=== PATIENT | female | born 1960 | race Caucasian/White ===

== ENCOUNTER 2017-10-06 08:31 | Day surgery (SDC) | payer OTHER ==
[2017-10-03 16:15] VITALS: BMI 27.4
[2017-10-06 08:59] VITALS: TEMP 97.9
[2017-10-06] MEDS ORDERED: PROPOFOL 20 ML ONE ×2 (09:33)
--- NOTE | 2017-10-06 09:57 | PROC ---
Endoscopy Procedure Endoscopy procedure completed. Please see scanned procedure report.
[2017-10-06 13:52] VITALS: BP 112/58; PULSE 70
== END 2017-10-06 11:00 | disposition home or self-care (01) ==
LOC: JASU-ENDO 08:31
PROVIDERS: ATTEND Internal Medicine Gastroenterology
PROC: 0DJD8ZZ Inspection of Lower Intestinal Tract, Via Natural or Artificial Opening Endoscopic (ICD-10-PCS; principal; 2017-10-06 09:30)
DX: Z12.11 Encounter for screening for malignant neoplasm of colon (principal)

== ENCOUNTER → 2019-02-07 | Emergency (ER) | payer OTHER ==
--- NOTE | 2019-02-07 17:27 | PDOC ---
History of Present Illness - General Chief Complaint: Pain, Acute Stated Complaint: LEFT LEG PAIN Time Seen by Provider: 02/07/19 17:27 - History of Present Illness Initial Comments: 02/07/19 18:26 58yo F hx HLD and herniated disc presents from home c/o L foot pain and rash. Pt first noticed posterior calf pain 11 days ago and presented to the ED here 9 days ago. Duplex was done to r/o DVT then pt was referred to ortho for probably strain. Pt saw Orthopedics 6 days ago and was diagnosed with Sciatica and given steroids. Posterior calf pain resolved with steroids. Then 2 days ago pt had gradual onset of L foot and lateral leg pain and a rash. Pt tried Tylenol without improvement. Rash is swelling, redness, and some dumps on lateral calf, medial L heel, ball of foot, and lateral L heel. Pain is located over rash sites , burning type, worse with palpation and walking, worsening with time. Pt has no hx of similar sx. Pt does not know if she has had chickenpox or if she's UTD on her vaccinations. She moved here from [facility] when she was 17yo. Denies F/C, N /V, headache, malaise, fatigue, numbness, weakness, CP, SOB, abdominal pain, flank pain, dysuria, D/C, hematuria, blood in stool, back pain, neck pain. Denies outdoor activity, insect bites, injury, trauma, other rashes. Past History - Past Medical History Allergies/Adverse Reactions: Allergies Allergy/AdvReac Type Severity Reaction Status Date / Time No Known Allergies Allergy Verified 02/07/19 17:24 Home Medications: Ambulatory Orders Aspirin [Aspirin EC] 81 mg PO HS 10/03/17 Simvastatin 40 mg PO HS 01/29/19 Gabapentin [Neurontin] 300 mg PO TID 7 Days #21 capsule 02/07/19 Valacyclovir HCl [Valtrex] 500 mg PO BID 7 Days #14 tablet 02/07/19 Anemia: No Asthma: No Cancer: No Cardiac Disorders: No CVA: No COPD: Yes CHF: No Dementia: No Diabetes: No GI Disorders: No Disorders: No HTN: No Hypercholesterolemia: Yes Liver Disease: No Seizures: No Thyroid Disease: No - Surgical History Abdominal Surgery: No Appendectomy: No Cardiac Surgery: No Cholecystectomy: No Lung Surgery: No Neurologic Surgery: No Orthopedic Surgery: No - Immunization History Immunization Up to Date: Yes - Suicide/Smoking/Psychosocial Hx Smoking History: Current every day smoker Have you smoked in the past 12 months: Yes Number of Cigarettes Smoked Daily: 10 'Breaking Loose' booklet given: 01/29/19 Hx Alcohol Use: No Drug/Substance Use Hx: No Substance Use Type: None Hx Substance Use Treatment: No Review of Systems - Review of Systems Comments:: 02/07/19 18:48 Constitutional: Negative for chills, fever, fatigue. HENT: Negative for sore throat, rhinorrhea, congestion. Eyes: Negative for visual disturbance. Respiratory: Negative for shortness of breath, cough, and wheezing. Cardiovascular: Negative for chest pain, palpitations, and leg swelling. Gastrointestinal: Negative for abdominal pain, blood in stool, constipation, diarrhea, nausea, and vomiting. Genitourinary: Negative for dysuria, flank pain, and hematuria. Musculoskeletal: Positive for pain to L foot at rash locations. Negative for myalgias, back pain, and neck pain. Skin: Positive for rash to lateral L calf/heel, medial L heel, and ball of L foot just proximal to base of 3rd toe. Neurological: Negative for light-headedness, dizziness, syncope, weakness, numbness and headaches. Psychiatric/Behavioral: Negative for behavioral problems and confusion. *Physical Exam - Physical Exam Comments: 02/07/19 18:49 Gen: Alert, NAD, comfortable-appearing. HEENT: PERRL, EOMI, MMM, NCAT. No conjunctival pallor. Sclera are non-icteric. Oropharynx is clear. CV: Regular rate and rhythm. No murmurs, rubs, or gallops. PULM: No resp distress. CTAB, no wheezes, rales, or rhonchi. ABD: soft, NT/ND, no rebound tenderness or guarding, no CVA tenderness. BACK: No TTP of c/t/l-spine. No step-offs or deformities. MSK: No bony deformities. 2+ pulses in all extremities. NEURO: AAOx3. PERRL. No gross CN deficits. Strength and sensation grossly intact throughout. EXTREMITIES: No cyanosis. No clubbing. No edema. No calf tenderness. PSYCH: Normal mood and thought pattern. SKIN: Warm and dry. Normal capillary refill. No jaundice. +Erythematous papules and vesicles and TTP on lateral L calf and heel, medial L heel, and ball of L foot just proximal to base of 3rd toe. No warmth, purulence , fluctuance, exudate, or crepitus. Medical Decision Making - Medical Decision Making 02/07/19 18:33 58yo F hx HLD and herniated disc presents from home with erythematous papular and vesicular rash and pain on lateral L calf/heel, medial L heel, and ball of foot just proximal to base of 3rd toe x 2 days. Of note, pt c/o posterior calf pain from 11 days ago to a few days ago, improved by steroids given by orthopedics for a dx of sciatic 6 days ago. Unknown chickenpox/vaccines. Denies outdoor activity, insect bites, injury, trauma, other rashes, other complaints. Hemodynamically stable, afebrile. No s/s concerning for systemic disease. Unilateral dermatomal pattern (L4-S1) of erythematous papules and grouped vesicles along with prodromal pain make shingles most likely. Will d/c home w/ PCP f/u, Gabapentin for pain, and Valtrex. No face/eye involvement concerning for HZO, acute retinal necrosis, or Erwin Dhillon syndrome. No wounds, warmth, or purulence concerning for bacterial infection, cellulitis, or abscess. No hx of insect bites and presentation not consistent with scabies, tick diseases, or other insect bites. Discussed complications and epidemiology/transmission of shingles. Of note, pt visited a relative in the hospital, a 3yo with Leukemia, 2 days ago. Informed pt to inform leukemia pt's parents and doctor of her dx. Pt's here states he had chickenpox in the past. Return precautions given. Pt understands all dc instructions and all questions were answered. *DC/Admit/Observation/Transfer Diagnosis at time of Disposition: Shingles - Discharge Dispostion Disposition: HOME Condition at time of disposition: Stable Decision to Admit order: No - Prescriptions Prescriptions: Gabapentin [Neurontin] 300 mg PO TID 7 Days #21 capsule Valacyclovir HCl [Valtrex] 500 mg PO BID 7 Days #14 tablet - Referrals Referrals: Mason Hernandez MD [Primary Care Provider] - - Patient Instructions Printed Discharge Instructions: DI for Shingles Additional Instructions: You have been seen in the Emergency Department for your leg and foot rash and pain. Your symptoms appear to be Shingles, a painful viral infection of the nerves and skin. For pain, we have prescribed you Gabapentin - take it 3 times a day as needed for pain. We have also prescribed you Valacyclovir, an antiviral medication to help speed up recovery. Take it as directed on the bottle. Shingles is very contagious to vulnerable people if they come in contact with the rash. Keep your rash covered with pants and socks and stay away from people who have not had chickenpox or the vaccine, women, babies, and people with weakened immune systems. Follow-up with both your primary care doctor and your orthopedic surgeon this week. Return to the ED immediately if you experience a rash on your face or head, worsening pain, fever or chills, nausea or vomiting, dizziness, or any other new or worsening symptom. - Post Discharge Activity
[2019-02-07 17:34] VITALS: BP 128/76; PULSE 77; TEMP 97.6; BMI 26.6
--- NOTE | 2019-02-07 17:58 | PDOC ---
Attending Attestation - Resident Resident Name: Cindy Ayon - ED Attending Attestation I have performed the following: I have examined & evaluated the patient, The case was reviewed & discussed with the resident, I agree w/resident's findings & plan - HPI HPI: 02/07/19 17:54 58 y/o female seen last week in ER for calf pain and had an US which was negative for DVT. Seen by Orthopedics for sciatica and placed on Prednisone. Pain is better, but now with rash on left leg adn some blisters towards bottom of oot. No fever or chills. No fall or trauma. - Physicial Exam PE: 02/07/19 17:55 VS stable HEENT; unremarkable Heart RRR w/o murmur Lungs CTA b/l, no wheezes EXT: left leg with clusters of erythematous lesions and blisters Neuro: strength 5+/5 b/l in UE and LE, no focal deficits noted - Medical Decision Making 02/07/19 17:57 It appears patient has shingles left leg, will place on Neurontin and Valtrex If worsen return to ER Pt is in agreement with plan Dx: Shingles Case discussed with Dr. Ayon and agree with plan
== END | disposition home or self-care (01) ==
LOC: FER 17:23
DX: B02.9 Zoster without complications (principal); E78.5 Hyperlipidemia, unspecified; F17.210 Nicotine dependence, cigarettes, uncomplicated; J44.9 Chronic obstructive pulmonary disease, unspecified
CPT/HCPCS: 99282-25

== ENCOUNTER 2020-09-13 18:13 | Emergency (ER) | payer OTHER | END 2020-09-13 18:56 | disposition home or self-care (01) | LOC: JVIRT 18:13 | DX: Z11.52 Encounter for screening for COVID-19 (principal) | CPT/HCPCS: C9803; G2251-GT; U0003 ==

== ENCOUNTER 2020-09-18 12:49 | Emergency (ER) | payer OTHER ==
[2020-09-18 13:00] VITALS: BP 134/66; PULSE 87; TEMP 98.5; BMI 27.4
== END 2020-09-18 14:30 | disposition home or self-care (01) ==
LOC: FER 12:49
DX: U07.1 COVID-19 (principal); R05 Cough
CPT/HCPCS: 71045-TC-FY; 99284-25; C9803; U0003

== ENCOUNTER 2020-09-23 15:42 | Emergency (ER) | payer OTHER ==
[2020-09-23 15:52] VITALS: BP 109/52; PULSE 80; TEMP 98.7; BMI 29.9
== END 2020-09-23 16:50 | disposition home or self-care (01) ==
LOC: FER 15:42
DX: U07.1 COVID-19 (principal)
CPT/HCPCS: 99283-25

== ENCOUNTER 2020-10-12 12:42 | Emergency (ER) | payer OTHER ==
[2020-10-13 10:07] LABS: SARS-CoV-2 NAA Not Detected (Not Detected)
== END 2020-10-12 15:07 | disposition home or self-care (01) ==
LOC: JVIRT 12:42
DX: J30.1 Allergic rhinitis due to pollen (principal); Z11.52 Encounter for screening for COVID-19
CPT/HCPCS: C9803; G2251-GT; Q3014-GT; U0003; U0005

== ENCOUNTER 2022-06-17 07:09 | Emergency (ER) | payer OTHER ==
[2022-06-17] MEDS ORDERED: SODIUM CHLORIDE 0.9% 1000 ML INFUS.BAG IV ONE (07:21)
[2022-06-17] MEDS ORDERED: KETOROLAC TROMETHAMINE 15 MG/ML VIAL IVPUSH ONE (07:21)
[2022-06-17] MEDS ORDERED: KETOROLAC TROMETHAMINE 30 MG/1 ML VIAL ONE (07:40)
[2022-06-17 07:57] LABS: HEMATOCRIT 39.8 % (32.4-45.2); HEMOGLOBIN 13.5 G/dL (10.7-15.3); MCH 30.2 pg (25.7-33.7); MEAN CELL VOLUME 89.1 fl (80-96); PLATELET COUNT 211.1 10^3/uL (134-434); RBC 4.47 10^6/uL (3.60-5.2); RDW 14.3 % (11.6-15.6); WHITE BLOOD COUNT 5.9 10^3/uL (4.0-10.8)
[2022-06-17 08:22] LABS: ALBUMIN 3.8 g/dl (3.4-5.0); BILIRUBIN,TOTAL 0.8 mg/dl (0.2-1); CALCIUM 8.7 mg/dl (8.5-10); CREATININE 0.7 mg/dl (0.55-1.3); TOT PROT 6.7 g/dl (6.4-8.2)
[2022-06-17 08:40] LABS: CALCIUM OXALATE CRYSTALS MODERATE /hpf (NONE SEEN); EPITHELIAL CELLS FEW /hpf
[2022-06-17] MEDS ORDERED: CEPHALEXIN MONOHYDRATE 500 MG CAPSULE (UD) PO ONE (09:15)
[2022-06-17 09:25] LABS: ADD RBC MORPHOLOGY NO; PLATELET ESTIMATE ADEQUATE
[2022-06-17 09:40] VITALS: RESP 18; BMI 25.4
[2022-06-17 09:42] VITALS: BP 132/69; PULSE 88; TEMP 98.9
[2022-06-17] MEDS ORDERED: CEPHALEXIN MONOHYDRATE 500 MG CAPSULE (UD) ONE (09:48)
== END 2022-06-17 09:52 | disposition home or self-care (01) ==
LOC: FER 07:09
PROC: 3E033GC Introduction of Other Therapeutic Substance into Peripheral Vein, Percutaneous Approach (ICD-10-PCS; principal; 2022-06-17)
DX: N20.0 Calculus of kidney (principal)
CPT/HCPCS: 36415; 74176-TC; 80053; 81003; 81015; 85025; 87077; 87086; 99285-25

== ENCOUNTER 2022-07-01 17:55 | Emergency (ER) | payer OTHER ==
[2022-07-01] MEDS ORDERED: IBUPROFEN 600 MG TABLET (FP) PO ONE ×2 (18:19→18:42)
[2022-07-01] MEDS ORDERED: DIPHTH,PERTUSS(ACELL),TET 0.5 ML DISP.SYRIN IM ONE ×2 (18:19→18:42)
[2022-07-01 18:29] VITALS: BP 110/72; PULSE 88; RESP 16; TEMP 98; BMI 27.4
== END 2022-07-01 19:31 | disposition home or self-care (01) ==
LOC: FER 17:55
PROC: 3E0234Z Introduction of Serum, Toxoid and Vaccine into Muscle, Percutaneous Approach (ICD-10-PCS; principal; 2022-07-01)
DX: S90.935A Unspecified superficial injury of left lesser toe(s), initial encounter (principal); M79.645 Pain in left finger(s); M79.675 Pain in left toe(s); W00.0XXA Fall on same level due to ice and snow, initial encounter
CPT/HCPCS: 73140-TC-LT-FY; 73630-TC-LT; 73660-TC-LT-FY; 90471; 90715; 99285-25

== ENCOUNTER 2023-07-24 19:37 | Emergency (ER) | payer OTHER ==
[2023-07-24 19:48] VITALS: BP 164/83; PULSE 89; RESP 16; TEMP 98.4; BMI 27.6
[2023-07-24] MEDS ORDERED: ACETAMINOPHEN 325 MG TABLET (FP) PO ONE (20:09)
[2023-07-24] MEDS ORDERED: ACETAMINOPHEN 325 MG TABLET (FP) ONE (20:15)
== END 2023-07-24 21:13 | disposition home or self-care (01) ==
LOC: FER 19:37
DX: S92.424A Nondisplaced fracture of distal phalanx of right great toe, initial encounter for closed fracture (principal); M79.674 Pain in right toe(s); W20.8XXA Other cause of strike by thrown, projected or falling object, initial encounter
CPT/HCPCS: 73660-TC-FY; 99283-25

== ENCOUNTER → 2024-08-18 | Day surgery (SDC) | payer OTHER | END | disposition home or self-care (01) | LOC: JRADUS-SUR 07:51 | PROVIDERS: ATTEND Internal Medicine | PROC: 0H9T3ZX Drainage of Right Breast, Percutaneous Approach, Diagnostic (ICD-10-PCS; principal; 2024-08-18) | DX: N60.11 Diffuse cystic mastopathy of right breast (principal) | CPT/HCPCS: 19083; 76942-TC; 77065-TC; 87899; 88305-TC; A4648 ==